=== PATIENT | male | born 1995 | race Caucasian/White ===

== ENCOUNTER 2016-03-30 01:55 | Emergency (ER) | payer BC ==
[~2016-03-30] VITALS: Ht 165.1 cm; Wt 65.8 kg
[2016-03-30 01:55] VITALS: BP 141/82
[2016-03-30] MEDS ORDERED: ACETAMINOPHEN ES 500 MG TABLET ONE (02:38)
[2016-03-30] MEDS ORDERED: HYDROCODONE/APAP 5/325MG 1 EACH TABLET ONE (02:38)
[2016-03-30] MEDS ORDERED: ONDANSETRON 4 MG TAB.RAPDIS ONE (02:38)
[2016-03-30] MEDS: ONDANSETRON 4 MG TAB.RAPDIS SL ONE (02:42)
[2016-03-30] MEDS: ACETAMINOPHEN ES 500 MG TABLET PO ONE (02:52)
[2016-03-30] MEDS: HYDROCODONE/APAP 5/325MG 1 EACH TABLET PO ONE (02:52)
== END 2016-03-30 03:41 | disposition home or self-care (01) ==
LOC: ER 01:55
DX: R51 Headache (principal); F10.20 Alcohol dependence, uncomplicated; F17.210 Nicotine dependence, cigarettes, uncomplicated
CPT/HCPCS: 70450-TC; A4606; Q0162; Z7610